=== PATIENT | male | born 1950 | race Caucasian/White ===

== ENCOUNTER → 2016-12-01 | Outpatient (CLI) | payer MEDICARE ==
[~2016-12-01] MED LIST: ASPI81CH37 CHEW; HYDR-3533 PO; LOVA20TA PO; LUMI0.01 EACH EYE; METO100T9 PO; MOTR200T4 PO; OMEP20TA39 PO; vitamin d2 PO
[2016-12-01 10:39] LABS: AUTOMATED NEUTROPHIL # 3.3 TH/MM3 (1.8-7.7); BASOPHIL # 0.1 TH/MM3 (0-0.2); BASOPHIL % 1.3 % (0.0-2.0); EOSINOPHIL # 0.2 TH/MM3 (0-0.4); EOSINOPHIL % 3.2 % (0.0-4.0); HEMATOCRIT 45.5 % (39.0-51.0); LYMPH % 26.5 % (9.0-44.0); LYMPHOCYTE # 1.4 TH/MM3 (1.0-4.8); MEAN CELL VOLUME 87.9 FL (80.0-100.0); MEAN CORPUSCULAR HEMOGLOBIN 29.1 PG (27.0-34.0); MEAN CORPUSCULAR HGB CONC 33.1 % (32.0-36.0); MONO % 9.2 % (0.0-8.0); NEUT % 59.8 % (16.0-70.0); PLATELET COUNT 142 TH/MM3 (150-450); RED BLOOD COUNT 5.18 MIL/MM3 (4.50-5.90); RED CELL DISTRIBUTION WIDTH 13.9 % (11.6-17.2); WHITE BLOOD COUNT 5.4 TH/MM3 (4.0-11.0)
[2016-12-01 10:43] LABS: HEMO FLAGS AUTO DIFF
[2016-12-01 11:25] LABS: SCAN/DIFF AUTO DIFF CONFIRMED
[2016-12-01 11:40] LABS: ALKALINE PHOSPHATASE 150 U/L (45-117); ALT (GPT) 38 U/L (12-78); ANION GAP 5 MEQ/L (5-15); AST (GOT) 21 U/L (15-37); BICARBONATE 32.5 MEQ/L (21.0-32.0); BLOOD UREA NITROGEN 23 MG/DL (7-18); CHLORIDE 105 MEQ/L (98-107); FERRITIN 41 NG/ML (26-388); GLOMERULAR FILTRATION RATE 72 ML/MIN (>89); GLUCOSE,FASTING 81 MG/DL (74-99); HDL CHOLESTEROL 66.9 MG/DL (40.0-60.0); LDL CHOLESTEROL 40 MG/DL (0-99); MAGNESIUM 2.2 MG/DL (1.5-2.5); POTASSIUM 4.1 MEQ/L (3.5-5.1); SODIUM (NA) 142 MEQ/L (136-145); TOTAL BILIRUBIN ADULT 0.9 MG/DL (0.2-1.0); TRANSFERRIN IRON PROFILE 273 MG/DL (200-360); URIC ACID 5.7 MG/DL (2.6-7.2)
[2016-12-04 19:54] LABS: VITAMIN A 53 mcg/dL (38-98)
[2016-12-05 03:57] LABS: ZINC 74 mcg/dL (60-130)
== END ==
LOC: CLAB 10:01
PROVIDERS: ATTEND Nurse Practitioner Adult Health
DX: E78.2 Mixed hyperlipidemia (principal); M10.00 Idiopathic gout, unspecified site; I10 Essential (primary) hypertension; E78.5 Hyperlipidemia, unspecified; R79.0 Abnormal level of blood mineral; E66.9 Obesity, unspecified; E53.8 Deficiency of other specified B group vitamins; E55.9 Vitamin D deficiency, unspecified; R63.4 Abnormal weight loss; E60 Dietary zinc deficiency; Z98.84 Bariatric surgery status
CPT/HCPCS: 36415; 80053; 80061; 82306; 82607; 82728; 82746; 83540; 83550; 83735; 84443; 84550; 84590; 84630; 85025

== ENCOUNTER 2016-12-09 06:24 | Emergency (ER) | payer MEDICARE ==
[~2016-12-09] VITALS: Ht 182.9 cm; Wt 82.0 kg
[~2016-12-09 06:24] MED LIST changes: -ASPI81CH37 CHEW; -HYDR-3533 PO; -MOTR200T4 PO
[2016-12-09 06:30] VITALS: BP 136/64; PULSE 75; RESP 16; TEMP 97.6; O2SAT 95
[2016-12-09 06:42] VITALS: BP 127/67; PULSE 69; RESP 16; O2SAT 100
[2016-12-09] MEDS ORDERED: ASPI81CH37 CHEW (06:46)
[2016-12-09] MEDS ORDERED: SODIUM CHLOR 0.9% 1000 ML INJ 1,000 ML IV SCH (06:52)
[2016-12-09] MEDS ORDERED: KETOROLAC TROMETHAMINE 30 MG/ML (IVP) VIAL IVP ONE (07:00)
[2016-12-09] MEDS ORDERED: SODIUM CHLORIDE 0.9% FLUSH 5 ML FLUSH IVF PRN (07:00)
[2016-12-09] MEDS ORDERED: ONDANSETRON HCL 4 MG/2 ML VIAL IVP ONE (07:00)
--- NOTE | 2016-12-09 07:01 | PD ---
HPI Chief Complaint: Abdominal Pain Time Seen by Provider: 06:37 Travel History International Travel<30 days: No Contact w/Intl Traveler<30days: No Traveled to known affect area: No History of Present Illness HPI The patient is a 66 year old male who presents to the [facility] emergency department with a history of left lower quadrant abdominal pain that began today. The patient reports a history on Wednesday of having left-sided flank pain similar to prior kidney stones. He reports that he began to push fluids and then developed pain that seemed to move down into the left groin. The pain then resolved, however today he began to have left lower quadrant abdominal pain. The patient reports the pain was not relieved with Tylenol, therefore he decided to come to the emergency department for evaluation and treatment. As he thought he may have a kidney stone and has been drinking a lot of water, his urine has looked light color. He denies having any dysuria, hematuria, urinary frequency or urgency. He reports having nausea but no vomiting. He denies having any diarrhea. He reports his last bowel movement was yesterday. The patient does have a history of atrial fibrillation. He reports that he takes a baby aspirin daily for this. The patient's other history and review of systems was remarkable for having cold symptoms with a clear rhinorrhea and occasionally productive cough. The patient denies any recent fevers, neck pain, chest pain, shortness of breath, or neurologic symptoms. 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 The patient had a history of being diabetic, having sleep apnea, hypertension , and hyperlipidemia, however this improved after his gastric bypass and 160 pound weight loss. Arthritis: Yes Asthma: No Autoimmune Disease: No Anxiety: No Depression: No Heart Rhythm Problems: No Cancer: No Cardiovascular Problems: Yes (AFIB.) High Cholesterol: Yes Chest Pain: No Congestive Heart Failure: No COPD: No Cerebrovascular Accident: No Diabetes: No Endocrine: No Gastrointestinal Disorders: Yes (GASTRIC BYPASS 12/23) GERD: No Genitourinary: No Headaches: Yes Hepatitis: No Hiatal Hernia: No Hypertension: Yes Immune Disorder: No Implanted Vascular Access Dvce: Yes Kidney Stones: No Musculoskeletal: Yes (ARTHRITIS) Neurologic: No Psychiatric: No Reproductive: No Respiratory: Yes Immunizations Current: Yes Migraines: No Myocardial Infarction: No Renal Failure: No Seizures: No Sleep Apnea: Yes (HAS OWN CPAP WITH HIM) Thyroid Disease: No Ulcer: No Tetanus Vaccination: < 5 Years Influenza Vaccination: Yes Past Surgical History Narrative Surgical The patient's past surgical history is significant for Stephon-en-Y gastric bypass , history of cholecystectomy history back surgery, history of colonoscopy, history of a hip replacement. Abdominal Surgery: No AICD: No Arteriovenous Shunt: No Cardiac Surgery: No Ear Surgery: No Endocrine Surgery: No Eye Surgery: No Genitourinary Surgery: No Gynecologic Surgery: No Insulin Pump: No Joint Replacement: Yes (BILAT. HIP) Neurologic Surgery: No Oral Surgery: Yes (TONSILS) Pacemaker: No Thoracic Surgery: No Tonsillectomy: Yes Other Surgery: Yes (PARIS. HIP REPLACEMENTS RIGHT HIP X 3 YRS AGO, LEFT HIP X 2 YRS AGO) Social History Alcohol Use: No Tobacco Use: No Substance Use: No Allergies-Medications (Allergen,Severity, Reaction): Coded Allergies: Tricor (Unverified Allergy, Severe, RASH, 12/09/16) Reported Meds & Prescriptions Reported Meds & Active Scripts Active Reported Aspirin Low Dose (Aspirin) 81 Mg Chew 81 Mg CHEW DAILY [vitamin d2 ] 1.25 Mg PO WEEKLY Hm Omeprazole (Omeprazole) 20 Mg Tab 20 Mg PO DAILY Metoprolol Succinate ER 100 mg (Metoprolol Succinate) 100 Mg Tab 1 Tab PO DAILY Review of Systems Except as stated in HPI: all other systems reviewed are Neg General / Constitutional: No: Fever Eyes: No: Visual changes HENT: No: Headaches Cardiovascular: No: Chest Pain or Discomfort Respiratory: No: Shortness of Breath Gastrointestinal: Positive: Nausea, Abdominal Pain, No: Vomiting, Diarrhea, Changes in Bowel Habits, Indigestion, Loss of Appetite Genitourinary: Positive: Flank Pain (left flank), No: Urgency, Frequency, Dysuria Musculoskeletal: No: Pain Skin: No Rash Neurologic: No: Weakness Psychiatric: No: Depression Endocrine: No: Polydipsia Hematologic/Lymphatic: No: Easy Bruising Physical Exam Narrative General: The patient is a well-developed well-nourished male in no acute distress. Head and Neck exam: Head is normocephalic atraumatic. Eyes: EOMI, pupils are equal round and reactive to light. Nose: Midline septum with pink mucous membranes Mouth: Dentition unremarkable. Moist mucus membranes. Posterior oropharynx is not erythematous. No tonsillar hypertrophy. Uvula midline. Airway patent. Neck: No palpable lymphadenopathy. No nuchal rigidity. No thyromegaly. Cardiovascular: Irregularly irregular irregular with rate control consistent with his history of atrial fibrillation without murmurs, gallops, or rubs. Lungs: Clear to auscultation bilaterally. No wheezes, rhonchi, or rales. Abdomen: Soft, with tenderness on palpation in the left lower quadrant of the abdomen, no tenderness on palpation of the other 3 quadrants of the abdomen. No tenderness on palpation of McBurney's point. Negative Lake's sign. Extremities: No clubbing, cyanosis, or edema. 2+ pulses in all 4 extremities. Back: No spinous process tenderness to palpation. Right-sided CVA tenderness. Neurologic Exam: Grossly nonfocal Skin Exam: No rash noted. Intact skin that is warm and dry. Data Data Last Documented VS Vital Signs Date Time Temp Pulse Resp B/P Pulse Ox O2 Delivery O2 Flow Rate FiO2 12/09/16 06:44 16 12/09/16 06:42 69 127/67 100 12/09/16 06:30 97.6 Room Air Orders Complete Blood Count With Diff (12/09/16 06:52) Comprehensive Metabolic Panel (12/09/16 06:52) Lipase (12/09/16 06:52) Lactic Acid (12/09/16 06:52) Urinalysis - C+S If Indicated (12/09/16 06:52) Iv Access Insert/Monitor (12/09/16 06:52) Ecg Monitoring (12/09/16 06:52) Oximetry (12/09/16 06:52) Ondansetron Inj (Zofran Inj) (12/09/16 07:00) Sodium Chlor 0.9% 1000 Ml Inj (Ns 1000 M (12/09/16 06:52) Sodium Chloride 0.9% Flush (Ns Flush) (12/09/16 07:00) Ketorolac Inj (Toradol Inj) (12/09/16 07:00) MDM Medical Decision Making Medical Screen Exam Complete: Yes Emergency Medical Condition: Yes Medical Record Reviewed: Yes Differential Diagnosis Kidney stone, versus pyelonephritis, versus diverticulitis, versus ischemic bowel Narrative Course During the course of the patients emergency department visit, the patients history, examination, and differential diagnosis were reviewed with the patient. The patient had IV access obtained and blood work sent for analysis. The patient is placed on a cardiac sonographer with oximetry and blood pressure monitoring. A CT scan of the abdomen and pelvis has been ordered. The patient was provided normal saline 1 L IV fluid bolus. The patient was given Toradol 30 mg IV. The patients laboratory studies and radiologic studies are pending at the conclusion of my shift. The patient will be checked out to the oncoming emergency physician to disposition based on the conclusion of the workup. Diagnosis Primary Impression: Abdominal pain, left lower quadrant Adelaida Lim MD Dec 09, 2016 07:00
[2016-12-09 07:07] LABS: AUTOMATED NEUTROPHIL # 6.7 TH/MM3 (1.8-7.7); BASOPHIL % 0.3 % (0.0-2.0); EOSINOPHIL # 0.1 TH/MM3 (0-0.4); HEMATOCRIT 47.3 % (39.0-51.0); HEMO FLAGS DIFF FINAL; LYMPH % 12.5 % (9.0-44.0); LYMPHOCYTE # 1.1 TH/MM3 (1.0-4.8); MEAN CELL VOLUME 88.1 FL (80.0-100.0); MEAN CORPUSCULAR HEMOGLOBIN 29.2 PG (27.0-34.0); MEAN CORPUSCULAR HGB CONC 33.2 % (32.0-36.0); MONO % 9.4 % (0.0-8.0); NEUT % 76.8 % (16.0-70.0); PLATELET COUNT 134 TH/MM3 (150-450); RED BLOOD COUNT 5.36 MIL/MM3 (4.50-5.90); RED CELL DISTRIBUTION WIDTH 13.7 % (11.6-17.2); WHITE BLOOD COUNT 8.8 TH/MM3 (4.0-11.0)
[2016-12-09 07:19] LABS: ANION GAP 10 MEQ/L (5-15); AST (GOT) 15 U/L (15-37); BICARBONATE 28.4 MEQ/L (21.0-32.0); BLOOD UREA NITROGEN 26 MG/DL (7-18); CHLORIDE 101 MEQ/L (98-107); GLOMERULAR FILTRATION RATE 48 ML/MIN (>89); SODIUM (NA) 139 MEQ/L (136-145)
[2016-12-09 07:22] LABS: ALKALINE PHOSPHATASE 154 U/L (45-117); ALT (GPT) 33 U/L (12-78); TOTAL BILIRUBIN ADULT 1.1 MG/DL (0.2-1.0)
--- NOTE | 2016-12-09 09:01 | RADRPT ---
EXAM DATE/TIME: 12/09/2016 08:06 [place] COMPARISON: No previous studies available for comparison. INDICATIONS : Left lower quadrant and flank pain since Wednesday. ORAL CONTRAST: No oral contrast ingested. RADIATION DOSE: 8.47 CTDIvol (mGy) MEDICAL HISTORY : Cardiovascular disease. Hypertension. Renal calculi. SURGICAL HISTORY : Gastric bypass. ENCOUNTER: Initial ACUITY: 3 days PAIN SCALE: 7/10 LOCATION: Left flank TECHNIQUE: Volumetric scanning of the abdomen and pelvis was performed. Using automated exposure control and ad justment of the mA and/or kV according to patient size, radiation dose was kept as low as reasonably achievable to obtain optimal diagnostic quality images. FINDINGS: Portion of the liver and spleen identified are free of focal defects. Pancreas is grossly unremarkable. There are bilateral renal stones present. There is a triangular shaped 7 mm calcification in the mid dle third of the left ureter. Pelvic contents are grossly unremarkable, although moderate artifact is present from bilateral total hips. CONCLUSION: 1. Bilateral renal stones. 2. Obstructing stone middle third of the left ureter as described above. 3. There appear to be mesenteric adenopathy present as well. This is incompletely evaluated on this scan done for renal stones. Turner Sweeney MD FACR on December 09, 2016 at 8:35 Board Certified Radiologist. This report was verified electronically.
--- NOTE | 2016-12-09 09:58 | PD ---
Physical Exam Date Seen by Provider: Dec 09, 2016 Time Seen by Provider: 07:00 Narrative Patient signed out to me by Dr. Lim at 7 AM, please see previous notes for further details. Awaiting CAT scan for further disposition. Laboratory Tests Test 12/09/16 06:50 Platelet Count 134 TH/MM3 (150-450) Mean Platelet Volume 11.1 FL (7.0-11.0) Neutrophils (%) (Auto) 76.8 % (16.0-70.0) Monocytes (%) (Auto) 9.4 % (0.0-8.0) Blood Urea Nitrogen 26 MG/DL (7-18) Creatinine 1.45 MG/DL (0.60-1.30) Estimat Glomerular Filtration 48 ML/MIN (>89) Rate Total Bilirubin 1.1 MG/DL (0.2-1.0) Alkaline Phosphatase 154 U/L (45-117) CAT scan shows a left mid ureter 7 mm stone. No significant hydronephrosis was mentioned. At this point, patient was reevaluated at 9:30 AM and appears to be doing well. Case was discussed with Dr. Gibbs, patient's urologist, and he would like the patient to be released and followed up in the office tomorrow for further treatment. Return for any worsening in pain or new symptoms as needed. Data Data Last Documented VS Vital Signs Date Time Temp Pulse Resp B/P Pulse Ox O2 Delivery O2 Flow Rate FiO2 12/09/16 06:44 16 12/09/16 06:42 69 127/67 100 12/09/16 06:30 97.6 Room Air Orders Complete Blood Count With Diff (12/09/16 06:52) Comprehensive Metabolic Panel (12/09/16 06:52) Lipase (12/09/16 06:52) Lactic Acid (12/09/16 06:52) Urinalysis - C+S If Indicated (12/09/16 06:52) Iv Access Insert/Monitor (12/09/16 06:52) Ecg Monitoring (12/09/16 06:52) Oximetry (12/09/16 06:52) Ondansetron Inj (Zofran Inj) (12/09/16 07:00) Sodium Chlor 0.9% 1000 Ml Inj (Ns 1000 M (12/09/16 06:52) Sodium Chloride 0.9% Flush (Ns Flush) (12/09/16 07:00) Ketorolac Inj (Toradol Inj) (12/09/16 07:00) Ct Abd/Pel W/O Iv Contrast (12/09/16 07:31) Labs Laboratory Tests Test 12/09/16 06:50 White Blood Count 8.8 TH/MM3 Red Blood Count 5.36 MIL/MM3 Hemoglobin 15.7 GM/DL Hematocrit 47.3 % Mean Corpuscular Volume 88.1 FL Mean Corpuscular Hemoglobin 29.2 PG Mean Corpuscular Hemoglobin 33.2 % Concent Red Cell Distribution Width 13.7 % Platelet Count 134 TH/MM3 Mean Platelet Volume 11.1 FL Neutrophils (%) (Auto) 76.8 % Lymphocytes (%) (Auto) 12.5 % Monocytes (%) (Auto) 9.4 % Eosinophils (%) (Auto) 1.0 % Basophils (%) (Auto) 0.3 % Neutrophils # (Auto) 6.7 TH/MM3 Lymphocytes # (Auto) 1.1 TH/MM3 Monocytes # (Auto) 0.8 TH/MM3 Eosinophils # (Auto) 0.1 TH/MM3 Basophils # (Auto) 0.0 TH/MM3 CBC Comment DIFF FINAL Differential Comment Sodium Level 139 MEQ/L Potassium Level 4.0 MEQ/L Chloride Level 101 MEQ/L Carbon Dioxide Level 28.4 MEQ/L Anion Gap 10 MEQ/L Blood Urea Nitrogen 26 MG/DL Creatinine 1.45 MG/DL Estimat Glomerular Filtration 48 ML/MIN Rate Random Glucose 103 MG/DL Lactic Acid Level 0.8 mmol/L Calcium Level 8.9 MG/DL Total Bilirubin 1.1 MG/DL Aspartate Amino Transf 15 U/L (AST/SGOT) Alanine Aminotransferase 33 U/L (ALT/SGPT) Alkaline Phosphatase 154 U/L Total Protein 7.0 GM/DL Albumin 3.9 GM/DL Lipase 136 U/L [facility] Medical Record Reviewed: Yes Supervised Visit with DIANNE: No Diagnosis Primary Impression: Abdominal pain, left lower quadrant Additional Impression: Renal colic on left side Additional Instruction: Follow-up with Dr. Ferrara tomorrow. Return for any worsening in pain or new symptoms as needed. Med/Other Pt SpecificInfo: Prescription(s) given Scripts Hydrocodone-Acetaminophen (Lortab)5-325 Mg Tab1-2 Tab PO Q6H PRN (PAIN) #20 TAB Ref 0 Prov:Shelby Combs MD 12/09/16 Ibuprofen (Motrin Ib)200 Mg Nsa126 Mg PO Q6H PRN (PAIN SCALE 1 TO 10) #28 TAB Ref 0 Prov:Shelby Combs MD 12/09/16 Disposition: 01 DISCHARGE HOME Condition: Stable Shelby Combs MD Dec 09, 2016 09:58
[2016-12-09] MEDS ORDERED: HYDR-3533 PO (10:05)
[2016-12-09] MEDS ORDERED: MOTR200T4 PO (10:05)
== END 2016-12-09 11:01 | disposition home or self-care (01) ==
LOC: NEPC 06:24
DX: R10.32 Left lower quadrant pain (principal); I48.91 Unspecified atrial fibrillation; I10 Essential (primary) hypertension; Z79.82 Long term (current) use of aspirin
CPT/HCPCS: 74176; 80053; 83605; 83690; 85025; 96361; 96374; 96375; 99284; J1885; J2405; J7030

== ENCOUNTER → 2017-10-08 | Outpatient (CLI) | payer MEDICARE ==
[~2017-10-08] MED LIST changes: +ASPI81CH6 CHEW; +HYDR-3533 PO; -LOVA20TA PO; -LUMI0.01 EACH EYE; +MOTR200T4 PO
[2017-10-08 09:18] LABS: ANION GAP 6 MEQ/L (5-15); AST (GOT) 32 U/L (15-37); BICARBONATE 27.6 MEQ/L (21.0-32.0); BLOOD UREA NITROGEN 27 MG/DL (7-18); CHLORIDE 106 MEQ/L (98-107); GLUCOSE,FASTING 84 MG/DL (74-99); POTASSIUM 4.2 MEQ/L (3.5-5.1); SODIUM (NA) 140 MEQ/L (136-145)
[2017-10-08 09:19] LABS: ALT (GPT) 52 U/L (12-78); GLOMERULAR FILTRATION RATE 87 ML/MIN (>89); URIC ACID 5.5 MG/DL (2.6-7.2)
[2017-10-08 09:23] LABS: ALKALINE PHOSPHATASE 127 U/L (45-117); HDL CHOLESTEROL 69.9 MG/DL (40.0-60.0); LDL CHOLESTEROL 45 MG/DL (0-99); TOTAL BILIRUBIN ADULT 0.9 MG/DL (0.2-1.0)
== END ==
LOC: CLAB 08:18
PROVIDERS: ATTEND Urology
DX: E78.2 Mixed hyperlipidemia (principal); M10.9 Gout, unspecified; Z12.5 Encounter for screening for malignant neoplasm of prostate
CPT/HCPCS: 36415; 80053; 80061; 84153; 84550

== ENCOUNTER → 2017-12-06 | Outpatient (CLI) | payer MEDICARE ==
[2017-12-06 12:37] LABS: AUTOMATED NEUTROPHIL # 2.4 TH/MM3 (1.8-7.7); BASOPHIL % 0.6 % (0.0-2.0); EOSINOPHIL # 0.1 TH/MM3 (0-0.4); HEMATOCRIT 45.7 % (39.0-51.0); HEMOGLOBIN 15.3 GM/DL (13.0-17.0); LYMPHOCYTE # 1.1 TH/MM3 (1.0-4.8); MEAN CELL VOLUME 85.7 FL (80.0-100.0); MEAN CORPUSCULAR HEMOGLOBIN 28.6 PG (27.0-34.0); MEAN CORPUSCULAR HGB CONC 33.4 % (32.0-36.0); MEAN PLATELET VOLUME 9.5 FL (7.0-11.0); MONO % 10.4 % (0.0-8.0); MONOCYTE # 0.4 TH/MM3 (0-0.9); PLATELET COUNT 150 TH/MM3 (150-450); RED BLOOD COUNT 5.33 MIL/MM3 (4.50-5.90); RED CELL DISTRIBUTION WIDTH 14.9 % (11.6-17.2); WHITE BLOOD COUNT 4.1 TH/MM3 (4.0-11.0)
[2017-12-06 13:21] LABS: ALBUMIN 3.7 GM/DL (3.4-5.0); BICARBONATE 30.1 MEQ/L (21.0-32.0); BLOOD UREA NITROGEN 23 MG/DL (7-18); CALCIUM 9.1 MG/DL (8.5-10.1); CHLORIDE 105 MEQ/L (98-107); CHOLESTEROL 137 MG/DL (120-200); CREATININE 0.79 MG/DL (0.60-1.30); GLOMERULAR FILTRATION RATE 97 ML/MIN (>89); GLUCOSE,FASTING 88 MG/DL (74-99); MAGNESIUM 2.2 MG/DL (1.5-2.5); SODIUM (NA) 139 MEQ/L (136-145)
[2017-12-06 13:22] LABS: AST (GOT) 25 U/L (15-37); PHOSPHORUS 3.2 MG/DL (2.5-4.9); TRIGLYCERIDES 75 MG/DL (42-150)
[2017-12-06 13:48] LABS: % SATURATION IRON PROFILE 25.5 % (20-50); ALKALINE PHOSPHATASE 124 U/L (45-117); ALT (GPT) 44 U/L (12-78); CHOLESTEROL/ HDL RATIO 2.09 RATIO; FERRITIN 17 NG/ML (26-388); HDL CHOLESTEROL 65.3 MG/DL (40.0-60.0); IRON (FE) 110 MCG/DL (65-175); LDL CHOLESTEROL 57 MG/DL (0-99); TOTAL BILIRUBIN ADULT 0.9 MG/DL (0.2-1.0); TOTAL IRON BINDING CAPACITY 431 MCG/DL (250-450); TOTAL PROTEIN 6.8 GM/DL (6.4-8.2)
[2017-12-06 13:54] LABS: FOLATE GREATER THAN 20.0 NG/ML (3.1-17.5)
[2017-12-09 18:28] LABS: ACLYCARNITINE/FREE CARNITINE 0.2 (0.1-0.8); ACYLCARNITINE 7 nmol/mL (5-30); CARNITINE FREE 35 nmol/mL (25-54); CARNITINE TOTAL 42 nmol/mL (34-78)
== END ==
LOC: CLAB 11:18
PROVIDERS: ATTEND Nurse Practitioner
DX: K59.00 Constipation, unspecified (principal); E78.5 Hyperlipidemia, unspecified; M10.9 Gout, unspecified; R79.0 Abnormal level of blood mineral; I10 Essential (primary) hypertension; E88.09 Other disorders of plasma-protein metabolism, not elsewhere classified; N20.0 Calculus of kidney; E55.9 Vitamin D deficiency, unspecified; R63.4 Abnormal weight loss; E66.3 Overweight; Z98.84 Bariatric surgery status
CPT/HCPCS: 36415; 80053; 80061; 82306; 82379; 82525; 82607; 82728; 82746; 83540; 83550; 83735; 84100; 84207; 84425; 84443; 84590; 84630; 85025